=== PATIENT | male | born 1970 | race Caucasian/White ===

== ENCOUNTER → 2018-02-17 | Outpatient (CLI) | payer OTHER ==
[~2018-02-17] MED LIST: ALBUTEROL2.5 MG/32 IH; NOHOMEMEDICATIONS; PREDNISONE 20 M20 M1 PO; VENTOLIN HFA INH8 GM IH; ZPAK PO
== END ==
LOC: M.MRI 13:08
DX: M75.101 Unspecified rotator cuff tear or rupture of right shoulder, not specified as traumatic (principal); M19.012 Primary osteoarthritis, left shoulder; Z87.891 Personal history of nicotine dependence

== ENCOUNTER 2019-01-31 19:45 | Inpatient (IN) | payer OTHER ==
[~2019-01-31] VITALS: Ht 177.8 cm; Wt 121.1 kg
[2019-01-31 19:48] VITALS: BP 153/84
[2019-01-31] MEDS ORDERED: LIPITOR10 MG PO (19:53)
[2019-01-31 21:09] LABS: ABSOLUTE BASOPHILS 0.1 thou/uL (0.0-0.2); ABSOLUTE EOSINOPHILS 0.2 thou/uL (0.0-0.7); ABSOLUTE LYMPHOCYTES 1.3 thou/uL (0.8-5.3); ABSOLUTE MONOCYTES 0.6 thou/uL (0.0-1.2); ABSOLUTE NEUTROPHILS 5.5 thou/uL (1.6-8.1); BASOPHILS 0.8 %; EOSINOPHILS 2.9 %; HEMOGLOBIN 14.6 gm/dL (14.0-18.0); LYMPHOCYTES 16.6 %; MCH 30.1 pg (26.0-34.0); MCV 88.5 fL (80.0-100.0); MONOCYTES 8.3 %; MPV 7.4 fl. (7.2-11.1); NUCLEATED RBCS 0 /100WBC; PLATELET COUNT* 318 thou/uL (150-400); POLYS 71.4 %; RBC 4.86 mil/uL (4.50-6.00); RDW-CV 14.4 % (10.5-14.5); WBC 7.7 thou/uL (4.0-11.0)
[2019-01-31 21:20] LABS: ANION GAP 10 mmol/L (7-16); BUN 14 mg/dL (7-18); CALCIUM 8.3 mg/dL (8.5-10.1); CHLORIDE 109 mmol/L (98-107); CO2 25 mmol/L (21-32); CREATININE 0.8 mg/dL (0.6-1.3); GLUCOSE 130 mg/dL (70-99); POTASSIUM 3.7 mmol/L (3.5-5.1); SODIUM 144 mmol/L (136-145)
[2019-01-31 21:29] LABS: ALBUMIN 3.5 g/dL (3.4-5.0); ALKALINE PHOSPHATASE 54 U/L (46-116); SGOT 17 U/L (15-37); SGPT 27 U/L (30-65); TOTAL BILIRUBIN 0.2 mg/dL (<0.1-1.0); TOTAL PROTEIN 6.3 g/dL (6.4-8.2); TROPONIN-I LEVEL <0.06 ng/mL (<0.06)
[2019-01-31 22:35] VITALS: BP 146/83
[2019-01-31 22:48] VITALS: BP 128/77
[2019-02-01 04:30] VITALS: BP 126/71
--- NOTE | 2019-02-01 06:48 | NUR ---
PATIENT ARRIVED ON UNIT AT 2230. PATIENT ALERT AND ORIENTED TIMES FOUR. NO COMLAINTS OF PAIN OR DISCOMFORT NOTED. VERBALIZED UNDERSTANDNG OF ADMISSION AND TREATMENT PLAN. HOURLY ROUNDING AND INDUSTRIAL X RAY OPERATOR COMPLETED CHARTED.
[2019-02-01 08:00] VITALS: BP 137/81
--- NOTE | 2019-02-01 10:50 | NUR ---
ASSUMED CARE OF PATIENT THIS AM AT 0730. PATIENT IS ALERT AND ORIENTED X 4. HE DENIES PAIN. HE C/O FREQUENT COUGH. SMALL TO NO SPUTUM PRODUCTION. TELE SHOWS NSR. PATIENT CHANGED TO MED SURG AND MONITOR DISCONTINUED. RESPIRATORY TX PER RT. PATIENT TAKEN TO RADIOLOGY FOR CT AND RETURNED. DIET ORDERED. PATIENT RESTING IN BED AT THIS TIME. CALL LIGHT IS IN REACH.
--- NOTE | 2019-02-01 14:49 | NUR ---
Pt is A&O. Resides at home with his . Active and independent. No DME. No hx of HH or SNF. Goal is home at vt. Following.
[2019-02-01 15:38] VITALS: BP 139/69
[2019-02-01 21:35] VITALS: BP 186/76
--- NOTE | 2019-02-02 06:31 | NUR ---
PATIENT TRANSFERRED TO ROOM 103 FROM TELEMETRY. PATIENT ALERT AND ORIENTED X 4. VSS ON RA. NO C/O PAIN. REPORT GIVEN FROM TELEMETRY NURSE. ORTHO NURSE AGREED WITH ASSESSMENT. PATIENT HAS SLEPT WELL THROUGHOUT THE NIGHT. PATIENT INSTRUCTED TO USE CALL LIGHT WHEN NEEDING ASSISTANCE. HOURLY ROUNDS MADE. WILL CONTINUE WITH PLAN OF CARE AND NURSING TO MONITOR.
[2019-02-02] MEDS ORDERED: CEFDINIR300 MG PO (07:37)
[2019-02-02] MEDS ORDERED: VENTOLIN HFA 1818 GM INH (07:37)
[2019-02-02] MEDS ORDERED: AZITHROMYCIN 2250 MG PO (07:37)
[2019-02-02] MEDS ORDERED: PROBIOTIC1 EAC1 PO (07:37)
[2019-02-02] MEDS ORDERED: MUCINEX600 MG PO (07:37)
[2019-02-02] MEDS ORDERED: PREDNISONE 20 M20 MG PO (07:37)
[2019-02-02 07:40] VITALS: BP 145/69
[2019-02-02 09:28] VITALS: BP 145/69
--- NOTE | 2019-02-02 09:32 | EKG ---
[place] [address] ELECTROCARDIOGRAM REPORT Name: KELIJEANINE Santana Room: [address] ADM IN M.R.#: [id number] Admission: 01/31/19 Attend Phys: Gee Chambers MD Discharge: Date of : 74 Report #: [id number] THIS REPORT FOR: //name// [facility] ED Test Date: 2019-01-31 Test Time: 20:50:31 Pat Name: JEANINE DICKEY Department: Room: [facility] Gender: M Integrity Specialist: JOSE ARMANDO : 1970 Requested By: Zi Juárez Order Number: [id number] MD: Marty Naqvi Measurements Intervals [place] Rate: 84 P: 63 TN: 154 QRS: 61 QRSD: 118 T: 3 QT: 375 QTc: 444 Interpretive Statements Sinus rhythm Probable left atrial enlargement No previous ECG available for comparison Electronically Signed On 02-02-2019 9:31:57 CDT by Marty Naqvi [email or web address] <ELECTRONICALLY SIGNED> By: Marty Naqvi MD, [facility] 02/02/19930 49 49 Marty Naqvi MD, FACC /EPI
[2019-02-02 10:07] VITALS: BP 145/69
--- NOTE | 2019-02-02 10:30 | NUR ---
ASSUMED CARE OF PATIENT OF PATIENT AT APPROX 0730. ALERT AND ORIENTED X4. ASSESSMENT AND CHARTED. VSS ON ROOM AIR. NO COMPLAINTS OF PAIN, NAUSEA, OR SOA. PATIENT TAKEN OFF OF 02 BEFORE MORNING ASSESSMENT, REST AND EXCERSIZE DONE AND PATIENT SAT REMAINED ABOVE 91%. PATIENT DISCHARGED AT 1000 WITH ALL PERSONAL BELONGINGS, PRESCRIPTIONS AND DISCHARGE INFORMATION.
== END 2019-02-02 10:00 | disposition home or self-care (01) | DRG 177 ==
LOC: M.ERS 19:45 → M.2W 21:46 → M.TBA-ER 21:46 → M.2W 22:22 → M.ORTHSURG 02-01 21:07
PROVIDERS: Emergency Medicine Emergency Medical Services; ADMIT Internal Medicine
DX: J15.6 Pneumonia due to other Gram-negative bacteria (principal); J96.01 Acute respiratory failure with hypoxia; R73.9 Hyperglycemia, unspecified; E78.5 Hyperlipidemia, unspecified; J45.909 Unspecified asthma, uncomplicated; F17.210 Nicotine dependence, cigarettes, uncomplicated; E66.9 Obesity, unspecified; D71 Functional disorders of polymorphonuclear neutrophils; Z68.38 Body mass index [BMI] 38.0-38.9, adult; Z79.899 Other long term (current) drug therapy

== ENCOUNTER → 2019-02-11 | Outpatient (CLI) | payer OTHER ==
[~2019-02-11] MED LIST changes: +AZITHROMYCIN 2250 MG PO; +CEFDINIR300 MG PO; +LIPITOR10 MG PO; +MUCINEX600 MG PO; +PREDNISONE 20 M20 MG PO; +PROBIOTIC1 EAC1 PO; +VENTOLIN HFA 1818 GM INH
== END ==
LOC: M.CT 13:20
DX: Z13.6 Encounter for screening for cardiovascular disorders (principal)

== ENCOUNTER 2021-01-31 17:19 | Emergency (ER) | payer OTHER ==
[~2021-01-31] VITALS: Ht 180.3 cm; Wt 117.9 kg
[2021-01-31 18:25] LABS: HEMATOCRIT 45.7 % (42.0-52.0); HEMOGLOBIN 15.2 gm/dL (14.0-18.0); MCH 29.6 pg (26.0-34.0); MCHC 33.2 g/dL (28.0-37.0); MCV 89.3 fL (80.0-100.0); MPV 8.3 fl. (7.2-11.1); NUCLEATED RBCS 0 /100WBC; PLATELET COUNT* 392 thou/uL (150-400); RBC 5.12 mil/uL (4.50-6.00); RDW-CV 14.3 % (10.5-14.5); WBC 14.6 thou/uL (4.0-11.0)
[2021-01-31 19:22] LABS: CALCIUM 8.7 mg/dL (8.5-10.1); CREATININE 0.8 mg/dL (0.6-1.3); POTASSIUM 4.1 mmol/L (3.5-5.1)
[2021-01-31 19:24] LABS: ABSOLUTE LYMPHOCYTES 1.8 thou/uL (0.8-5.3); ABSOLUTE MONOCYTES 0.9 thou/uL (0.0-1.2)
[2021-01-31 19:26] LABS: PLATELET ESTIMATE ADEQUATE
[2021-01-31 19:27] LABS: ALBUMIN 3.9 g/dL (3.4-5.0); TOTAL BILIRUBIN 0.5 mg/dL (<0.1-1.0); TOTAL PROTEIN 6.6 g/dL (6.4-8.2)
[2021-01-31] MEDS ORDERED: ZOFRAN ODT4 MG PO (21:33)
[2021-01-31] MEDS ORDERED: OMEPRAZOLE 20 M20 M1 PO (21:33)
[2021-01-31 21:48] VITALS: BP 155/80
== END 2021-01-31 21:50 | disposition home or self-care (01) ==
LOC: M.ERS 17:19
PROVIDERS: Nurse Practitioner Psychiatric/Mental Health
DX: K52.9 Noninfective gastroenteritis and colitis, unspecified (principal); K92.0 Hematemesis; F17.210 Nicotine dependence, cigarettes, uncomplicated; Z20.822 Contact with and (suspected) exposure to COVID-19

== ENCOUNTER → 2021-07-02 | Outpatient (CLI) | payer OTHER ==
[~2021-07-02] MED LIST changes: +OMEPRAZOLE 20 M20 M1 PO; +ZOFRAN ODT4 MG PO
== END ==
LOC: M.CT 13:27
PROVIDERS: ATTEND Internal Medicine Gastroenterology
DX: J84.10 Pulmonary fibrosis, unspecified (principal); I25.10 Atherosclerotic heart disease of native coronary artery without angina pectoris; R91.1 Solitary pulmonary nodule